=== PATIENT | female | born 1965 | race Caucasian/White ===

== ENCOUNTER 2019-11-29 02:27 | Outpatient (CLI) | payer OTHER, SELFPAY ==
[2019-11-29 11:09] LABS: Bilirubin Negative (Negative); Blood Trace-intact (Negative); Clarity Clear (Clear); Glucose Negative (Negative); Ketones Negative (Negative); Leukocyte Esterase Moderate (Negative); Nitrite Negative (Negative); Urobilinogen 0.2 EU/dL (Up TO 0.2)
[2019-11-29 11:14] LABS: Abs Immature Grans 0.01 k/cumm (0.0-0.09); Absolute Basophil Count 0.02 k/cumm (0.0-0.2); Absolute Eosinophil Count 0.12 k/cumm (0.0-0.7); Absolute Lymphocyte Count 2.15 k/cumm (1.2-3.4); Absolute Monocyte Count 0.42 k/cumm (0.11-0.7); Absolute Neutrophil Count 2.69 k/cumm (1.2-6.7); Basophils % 0.4; Eosinophils % 2.2; HCT 38.9 % (36.0-46.0); HGB 13.2 g/dL (12.0-15.5); Immature Grans % 0.2 %; Lymphocytes % 39.7; Mean Corp. HGB Concentration 33.9 g/dL (32.0-36.0); Mean Corpuscular Hemoglobin 31.1 pg (27.0-33.0); Mean Corpuscular Volume 91.7 fL (80-95); Monocytes % 7.8; Neutrophils % 49.7; Platelet Count 237 x1000/uL (130-400); RBC 4.24 m/cumm (4.00-5.20); RBC Distribution Width 12.2 % (11.7-14.6); White Blood Cell Count 5.41 k/cumm (4.4-10.8)
[2019-11-29 11:19] LABS: Bacteria Moderate HPF (Negative); C & S Indicated? No/Sq. Contamination; Epithelial Cells Many HPF (Negative); WBC 20-50 HPF (0-5)
[2019-11-29 11:45] LABS: Iron 122 ug/dL (50-170); Total Iron Binding Capacity 280 ug/dL (250-450)
[2019-11-29 12:02] LABS: ALT 26 U/L (14-59); AST 16 U/L (15-37); Albumin 3.9 g/dL (3.4-5.0); Alkaline Phosphatase 45 U/L (46-116); Anion Gap 6.1 mmol/L (3-11); BUN 11 mg/dL (7-18); Bilirubin, Direct 0.12 mg/dL (0.00-0.20); Bilirubin, Total 0.5 mg/dL (0.2-1.0); CO2 30.9 mmol/L (21.0-32.0); CREATININE 0.68 mg/dL (0.55-1.02); Calcium 8.8 mg/dL (8.5-10.1); Chloride 106 mmol/L (98-107); FREE T4 1.06 ng/dL (0.76-1.46); Glucose 76 mg/dL (74-106); Potassium 3.6 mmol/L (3.5-5.1); Sodium 143 mmol/L (136-145); TSH 3.81 uIU/mL (0.36-3.74); Total Protein 6.3 g/dL (6.4-8.2)
[2019-11-29 12:06] LABS: Hemoglobin A1C 5.3 % (3.8-5.6)
[2019-11-29 13:26] LABS: Calculated LDL 102 mg/dL; Cholesterol 162 mg/dL (<200); Ferritin 95 ng/mL (8-252); GGT 18 U/L (5-55); HDL Cholesterol 51 mg/dL (40-60); Triglyceride 48 mg/dL (<150)
[2019-11-30 17:33] LABS: T3,Free 3.5 pg/mL (2.8-5.3)
[2019-11-30 17:46] LABS: T3, Total 120 ng/dL (97-169)
[2019-12-01 10:59] LABS: Thyroperoxidase Antibody <28 U/mL (<=60)
[2019-12-01 13:43] LABS: Transferrin 230 mg/dL (201-352)
[2019-12-01 13:55] LABS: Lyme Ab w Rflx to Lyme Confirm Negative (Negative); Parathyroid Hormone,Intact 30 pg/mL (19-88)
[2019-12-02 22:20] LABS: Bartonella Henselae IgG <1:128 titer (<1:128); Bartonella Henselae IgM <1:20 titer (<1:20); Bartonella Quintana IgG <1:128 titer (<1:128); Bartonella Quintana IgM <1:20 titer (<1:20)
[2019-12-03 10:57] LABS: IgA 114 mg/dL (85-499); Tissue Transglutaminase IgA <1.2 U/mL (<4.0)
[2019-12-03 11:34] LABS: Methylmalonic Acid 0.23 nmol/mL (<=0.40)
[2019-12-03 17:28] LABS: Anaplasma phagocytophilum Negative (Negative); B. miyamotoi PCR Negative (Negative); Babesia divergens/MO-1 Negative (Negative); Babesia duncani Negative (Negative); Babesia microti Negative (Negative); Ehrlichia chaffeensis Negative (Negative); Ehrlichia ewingii/canis Negative (Negative); Ehrlichia muris eauclairensis Negative (Negative)
[2019-12-04 09:38] LABS: T3 (Triiodothyronine) Reverse 20 ng/dL (10-24)
[2019-12-04 10:58] LABS: Insulin 5.3 uIU/mL (<29.0)
== END 2019-11-29 02:47 ==
PROVIDERS: Visit Provider Family Medicine
DX: G47.33 Obstructive sleep apnea (adult) (pediatric) (principal); B35.3 Tinea pedis; K59.00 Constipation, unspecified; L20.9 Atopic dermatitis, unspecified; R53.83 Other fatigue; H04.129 Dry eye syndrome of unspecified lacrimal gland
CPT/HCPCS: 36415; 80053; 80061; 80076; 80186; 82306; 82784; 83516; 83721; 87798; 81003; 81015; 82465; 82728; 82977; 83036; 83525; 83540; 83550; 83718; 83970; 84439; 84443; 84466; 84478; 84480; 84481; 84482; 85025; 86376; 86611; 86618

== ENCOUNTER 2019-11-30 11:22 | Outpatient (CLI) | payer OTHER, SELFPAY ==
[2019-11-30 17:09] LABS: CRP, High Sensitivity 0.23 mg/L (See Note)
[2019-12-01 09:35] LABS: Homocysteine 15.4 umol/L (5.0-13.9)
[2019-12-02 14:56] LABS: Fibrinogen Antigen, P 376 mg/dL (196 - 441)
[2019-12-02 15:01] LABS: Lipoprotein (a) 7 mg/dL (<=30)
[2019-12-05 09:21] LABS: Misc Referral (MAYO) See Comments
== END 2019-11-30 11:42 ==
PROVIDERS: Visit Provider Family Medicine
DX: R53.83 Other fatigue (principal); G47.33 Obstructive sleep apnea (adult) (pediatric); B35.3 Tinea pedis; K59.00 Constipation, unspecified; L20.9 Atopic dermatitis, unspecified; M19.90 Unspecified osteoarthritis, unspecified site
CPT/HCPCS: 83090; 83695; 85385; 86141; 82652

== ENCOUNTER 2021-06-12 16:25 | Emergency (ER) | payer OTHER, SELFPAY ==
[2021-06-12 16:39] VITALS: BP 134/65; PULSE 89; RESP 16; TEMP 36.6; O2SAT 97
[2021-06-12] MEDS: predniSONE 20 MG TAB 60 MG PO (17:15)
[2021-06-12] MEDS: Loratidine 10 MG TAB PO (17:15)
--- NOTE | 2021-06-12 22:11 | ED.GENADUL_ITS ---
Discharge Plan Disposition Patient Disposition: HOME Condition: Stable Discharge Details Clinical Impression: Sting Primary Care Provider: Unknown,Unknown ED Provider: Nevin Chiu Home Meds and New Rx's Prescriptions: New prednisone 20 mg tablet 60 mg PO DAILY Qty: 9 RF: 0 Discharge Instructions Instructions: Insect Bite or Sting (ED) Additional Instructions: elevate, ice prednisone for the next 3 days claritin for the next 3 days return earlier with spreading redness, fever, difficulty swallowing Medical Decision Making Patient appears well, she does appear to be having a local allergic reaction, she was given a dose of Claritin and prednisone as she states she is unable to take Benadryl She was given prescription for prednisone and Claritin for home There is no clinical evidence of anaphylaxis at this time Given the threshold to return with new or worsening complaints HPI General Mode of arrival: ambulatory . Date/Time Provider Initiated Documentation: 06/12/21 16:45 . Limitations to Documentation: no limitations . Information obtained by: patient . HPI Narrative: This 66-year-old female presents with yellowjacket sting to her right wrist at 1030 today. She denies any additional injuries. She denies any chest pain or shortness of breath at this time. She states he felt short of breath right after the event occurred but states it resolved and thinks it was anxiety. She denies any difficulty swallowing at the time. She presents medically because the following is broad and she was concerned. She denies history of anaphylaxis. She has not taken any medications prior to her presentation today. Related Data Home Medications Medication Instructions Recorded Confirmed prednisone 60 mg PO DAILY #9 tab 06/12/21 Previous Rx's Medication Instructions Recorded prednisone 60 mg PO DAILY #9 tab 06/12/21 Allergies Allergy/AdvReac Type Severity Reaction Status Date / Time Penicillins Allergy Unverified 06/12/21 16:44 environmental Allergy Uncoded 06/12/21 16:44 General Stated Complaint: Allergic GO: 3 Review of Systems All systems reviewed & are unremarkable except as noted in HPI and below PFSH Social History Smoking/Tobacco Use Status: Never Smoking risk assessment performed?: Yes Substance use type: does not use Exam Neck Other: No stridor Resp Effort & Inspection: normal respiratory effort Auscultation: clear to auscultation bilaterally Cardio Rate: regular rate Skin Other: See documentation below Neuro General: patient alert and patient oriented x3 Extrem Other: Right upper extremity with approximately 8 inches of forearm swelling, mild erythema, no lymphangitis, no crepitus, neurovascularly intact Course Vital Signs Vital signs: Vital Signs Temperature 36.6 C 06/12/21 16:39 Pulse 89 06/12/21 16:39 Respiratory Rate 16 06/12/21 16:39 Blood Pressure 134/65 06/12/21 16:39 Pulse Oximetry 97 06/12/21 16:39 Temperature 36.6 C 06/12/21 16:39 Temperature Source Skin 06/12/21 16:39 Pulse 89 06/12/21 16:39 Respiratory Rate 16 06/12/21 16:39 Respiratory Effort Non-Labored 06/12/21 16:39 Blood Pressure 134/65 06/12/21 16:39 Blood Pressure Position Sitting 06/12/21 16:39 Pulse Oximetry 97 06/12/21 16:39 Oxygen Delivery Method Room Air 06/12/21 16:39 Oxygen Flow Rate 0 06/12/21 16:39 Pain Level 4 06/12/21 17:50
== END 2021-06-12 21:00 | disposition home or self-care (01) ==
PROVIDERS: Emergency Provider Physician Assistant
DX: T63.441A Toxic effect of venom of bees, accidental (unintentional), initial encounter (principal); M79.89 Other specified soft tissue disorders
CPT/HCPCS: 99283; J7512

== ENCOUNTER 2021-10-11 02:53 | Outpatient (CLI) | payer OTHER, SELFPAY ==
[2021-10-11 11:22] LABS: Abs Immature Grans 0.02 10^3/uL (0.0-0.06); Absolute Basophil Count 0.06 10^3/uL (0.0-0.2); Absolute Eosinophil Count 0.24 10^3/uL (0.0-0.7); Absolute Lymphocyte Count 2.39 10^3/uL (1.2-3.4); Absolute Monocyte Count 0.66 10^3/uL (0.1-0.8); Absolute Neutrophil Count 3.81 10^3/uL (1.2-6.7); Basophils % 0.8; Eosinophils % 3.3; HCT 42.7 % (36.0-46.0); HGB 14.2 g/dL (11.2-15.7); Immature Grans % 0.3; Lymphocytes % 33.3; MCH 30.5 pg (27.0-33.0); MCHC 33.3 % (32.0-36.0); MCV 91.6 fL (80-95); MPV 9.5 fL (8.0-11.0); Monocytes % 9.2; Neutrophils % 53.1; Nucleated RBC 0 %; Platelet Count 254 10^3/uL (130-400); RBC 4.66 10^6/uL (3.93-5.22); RDW 11.9 % (11.7-14.6); RDW-SD 39.8 fL; WBC 7.18 10^3/uL (4.4-10.8)
[2021-10-11 13:22] LABS: Anion Gap 10.6 mmol/L (3-11); BUN 9 mg/dL (7-18); CO2 29.4 mmol/L (21.0-32.0); CREATININE 0.9 mg/dL (0.55-1.02); Calculated LDL 173 mg/dL (<100); Chloride 104 mmol/L (98-107); Cholesterol 249 mg/dL (<200); Glucose 84 mg/dL (74-106); HDL Cholesterol 46 mg/dL (40-60); Potassium 3.9 mmol/L (3.5-5.1); Sodium 144 mmol/L (136-145); TSH 3.85 uIU/mL (0.36-3.74); Triglyceride 152 mg/dL (<150)
[2021-10-12 12:36] LABS: Lyme Ab w Rflx to Lyme Confirm Negative (Negative)
[2021-10-13 01:37] LABS: Vitamin D 25 Total 25.1 ng/mL (30-100)
== END 2021-10-11 02:54 | disposition home or self-care (01) ==
LOC: LBO 02:53
PROVIDERS: PCP Family Medicine; Visit Provider Family Medicine
DX: E03.9 Hypothyroidism, unspecified (principal); E55.9 Vitamin D deficiency, unspecified; M19.90 Unspecified osteoarthritis, unspecified site
CPT/HCPCS: 36415; 80048; 80061; 82306; 84443; 85025; 86618